=== PATIENT | female | born 1990 | race Caucasian/White ===

== ENCOUNTER 2017-02-17 20:14 | Inpatient (IN) | payer MEDICAID ==
--- NOTE | ~2017-02-17 | HP ---
Unit #: [id number] #: [id number] Patient: HAYDE MOSCOSO [id number] [address] [address] [id number] I MR#: [id number] NAME: HAYDE MOSCOSO ROOM: 463 Age: Sex: F Admission Date: 02/18/2017 : 1990 Attending Physician: Vilma Terry M.D. Primary Care Physician: Primary Care Physician No HISTORY AND PHYSICAL ADDENDUM Strep screen and influenza swabs are negative. Dictated by Vilma Terry M.D. AML/ts TD: 02/18/2017 05:04 JOB #: [id number] HISTORY AND PHYSICAL Page 1 of 1 X Vilma Terry MD X HISTORY AND PHYSICAL
--- NOTE | ~2017-02-17 | DS ---
Unit #: [id number] #: [id number] Patient: HAYDE MOSCOSO [id number] [address] [address] [id number] I MR#: [id number] NAME: HAYDE MOSCOSO ROOM: 46 Age: 26 Sex: F Admission Date: 02/18/2017 : 1990 Discharge Date: 02/20/2017 Attending Physician: Fabian Booth M.D. Primary Care Physician: No Primary Care Physician DISCHARGE SUMMARY ADMISSION DIAGNOSES 1. Probable viral illness including likely viral bronchitis with mild neutropenia and thrombocytopenia. 2. Mild rhabdomyolysis secondary to myalgias and likely untreated hypothyroidism. 3. Polycystic ovarian syndrome. 4. Hypothyroidism, out of Synthroid. 5. Mildly elevated liver function tests. DISCHARGE DIAGNOSES 1. Viral bronchitis with mild neutropenia and thrombocytopenia, improved. 2. Systemic inflammatory response syndrome without obvious source of infection. 3. Fever, resolved. 4. Hypokalemia, resolved. 5. Hypomagnesemia, resolved. 6. Mild rhabdomyolysis, improving. 7. Polycystic ovarian syndrome, stable. 8. Acute anemia, hemoglobin and hematocrit stable. Needs followup with primary care physician. 9. Probable gastroesophageal reflux disease. 10. History of major depressive disorder with past hospitalization at [facility] without suicidal or homicidal ideation. 11. Morbid obesity with body mass index of 57.4. CONSULTANTS Dr. Vernon Joe, psychiatry. PROCEDURES None. DIAGNOSTIC STUDIES LABORATORY: WBC 3.6, hemoglobin 9.9, hematocrit 29.9, platelet count 129,000 and sodium 139, potassium 3.8, chloride 109, CO2 26, BUN 6, creatinine 1.0, glucose 93, AST 59, ALT 56. Blood cultures preliminary x2 no growth. Urine culture final no growth at 48 hours. Stool cultures for Shiga toxin 1 and 2 no Salmonella or Shigella isolated. Campylobacter antigen final, antigen absent or levels below limit of detection. Hemoglobin A1C 5.7. TSH 15.27. Free T4 0.85. Admission urine drug screen negative. Strep DNA throat culture result no group A strep detected IMAGING: On 02/17/17 two-view chest x-ray, impression normal chest. Unit #: [id number] #: [id number] Patient: BLANKA,BRIGHID ALLERGIES Sulfa. DISCHARGE MEDICATIONS 1. Acetaminophen 325 mg tab two p.o. q.4 h. p.r.n. pain over the counter. 2. Mag-Al Plus suspension 30 mL p.o. q.6 h. p.r.n. dyspepsia over the counter. 3. Celexa 20 mg p.o. q.h.s. 4. Desyrel 100 mg p.o. q.h.s. 5. Vistaril 25 mg p.o. t.i.d. 6. Zithromax 250 mg p.o. daily for two more days for a total of five days of antibiotic therapy. 7. Synthroid 0.025 mg p.o. daily on empty stomach in the early a.m. DISCHARGE INSTRUCTIONS 1. Disposition home. 2. Patient is to have a CBC as well as a CK total performed at the lab of her choice although the patient may come to the [facility] lab for this in one week. Results are to be faxed to the [facility] Medicine office at [phone]. 3. The patient is to contact her health insurance provider regarding PCP assignment. The patient confirms she does have health insurance but has not called or chosen a PCP because of the time she has been spending with her mother who is currently hospitalized at this facility as well. 4. Patient is to call and schedule a follow-up appointment with her primary care physician once established for a PROFESSOR OF RELIGIOUS STUDIES update examination and PCOS evaluation and management. 5. Constant carbohydrate diet. 6. Patient is to follow up with her primary care physician in six weeks for repeat thyroid profile and for medication management of L-thyroxin. 7. Patient is to [facility] up [facility] as advised by Dr. Vernon Joe at his visit with her this morning. HOSPITAL COURSE Patient is a 26-year-old, morbidly obese female who presented to [facility] emergency department on the date of admission with chief complaint of cough, nausea, vomiting and diarrhea. Patient was treated with IV bolus, Toradol, Tylenol and Zithromax. Patient was noted to have mild rhabdomyolysis as well as a depressed white blood cell count at 2.6. Chest x-ray was negative. Patient was noted to have a history of hypothyroidism and had not been taking her Synthroid for a period of time because she does not have a primary care physician. Patient was admitted to the hospital for further evaluation and management of her condition. Please refer to history and physical report for details. The patient was noted to continue with a mild nonproductive cough throughout the hospital course. She has had slow but consistent improvement in neutropenia as well as thrombocytopenia. She has had no bleeding. She has continued to receive oral Zithromax and is to continue for two additional days for a total of five days of antibiotic therapy. While the patient met SIRS criteria, she had no suspected source of infection. Patient was started however on a Z-Thiago by the emergency room physician. The patient's chest x-ray, urine cultures, preliminary blood cultures have all returned negative. The patient has denied any type of neck pain and has not exhibited any nuchal rigidity. Patient's appetite Unit #: [id number] #: [id number] Patient: HAYDE MOSCOSO has gradually improved. She has had no further nausea, vomiting or diarrhea and is tolerating food and fluids well at this time. The patient received repletion of potassium and magnesium for hypokalemia and hypomagnesemia both of which have resolved as well. Her CK total has gradually continued to decrease. She is to establish herself with a primary care physician. She confirms she does have health insurance plan and followup as dictated under discharge instructions above. Patient was noted to have some inconsistencies in her daily conversations with the internal medicine provider throughout the hospital course. Patient was also noted to have a flat affect and be apathetic in general. She was noted to be wandering the halls at night and very sleepy during the daytime. Review of [facility] records revealed Our documentation of a prior history of major depressive disorder, severe and recurrent, as well as agoraphobia. Patient was noted to be on no psychiatric medications again as the patient has not taken any of her medications because she does not have a primary care doctor. Dr. Joe was consulted for further psychiatric evaluation and management. Patient was started on Celexa, Vistaril and trazodone as dictated above. The patient has been given a prescription for all of these medications by Dr. Joe. kettle worker will confirm the patient can afford all of the medications prescribed both for the two-days of antibiotic levothyroxine and all of the psychiatric medications prior to discharge today. I discussed the patient with Dr. Booth and he has evaluated her at the bedside today. She has been cleared for discharge home with CBC and CK total in one week as dictated above to follow white blood cell count, red blood cell count, hemoglobin and hematocrit as well as CK. Dictated by... Doris Song A.P.R.N. for Fabian Booth M.D. ALPESH/gustavo TD: 02/22/2017 15:30 JOB #: [id number] DISCHARGE SUMMARY Page 1 of 1 X Doris Song APRN X DISCHARGE SUMMARY
--- NOTE | ~2017-02-17 | BMI ---
[facility] Nutrition Therapy DATE: 02/18/17 Patient: HAYDE MOSCOSO Physician: ARY Address: [address] [facility] Room/Bed: [address] [place] [address], Zip: [place] [address] Admit Date: 02/18/17 Date of : [birth year] Height: 5 9 Weight: 389 176.9 HIGH BMI NOTE: DX: 26 Y.O. FEMALE ADMITTED FOR N/V COUGH RHABDO ANTHROPOMETRICS: 5'9", WT: 389# (177 KG), BMI: 57.4 DIET: FULL LIQUID INTERVENTION: 1. FULL LIQUID DIET RECOMMENDATIONS: 1. ONCE MEDICALLY FEASIBLE, ADVANCE DIET INDICATED TO HEALTHY HEART TO PROMOTE GRADUAL WEIGHT LOSS TOWARDS HEALTHY BMI (19.0-25.0) OR +/-10%IBW RD WILL F/U PER PROTOCOL Respectfully, JALEEL PATTEN MS, RD, LD Food and Nutritional Services [facility] cc: client file
--- NOTE | ~2017-02-17 | CR63 ---
[facility] A Service of [facility] RADIOLOGY TEXT RESULTS PATIENT: HAYDE MOSCOSO LOCATION: [place] [address]- : [birth year] UNIT #: [id number] AGE: [address]: Fabian Booth MD SEX: F ORDER DR: [id number] [facility] [address] [facility] [place], [place] [address] [id number] I MR#: [id number] Acc #: [id number] NAME: HAYDE MOSCOSO : 1990 SEX: F STUDY DATE/TIME: 02/17/2017 21:43 UNIT: [facility] [place] [facility] ROOM: [facility] STUDY DESCRIPTION: CR Chest 2 View Attending Physician: Vilma Terry M.D. Ordering Physician: Brandon Noguera Aprn Primary Care Physician: Primary Care Physician No MEDICAL IMAGING REPORT This report is preliminary unless electronic signature is present EXAM Chest PA and lateral 02/17/2017 HISTORY Cough, dizziness, chills, headache and diarrhea for 4 days with body aches. FINDINGS PA and lateral examination of the chest upright shows a good expansion of the parenchyma with a normal distribution of the pulmonary vascularity. There is no indication of congestion, effusion, infiltrate, tumor, or nodular density. The pleural reflections and diaphragmatic contours are normal. The cardiac silhouette and mediastinal anatomy is within normal limits. IMPRESSION Normal chest. Dictated by... Maicol Carreon M.D. THIS IS AN ELECTRONICALLY VERIFIED REPORT Maicol Carreon M.D. at 02/18/2017 10:42 AM JAUN/shruthi TD: 02/18/2017 07:59 JOB #: [id number] MEDICAL IMAGING REPORT Page 1 of 1 COPY
--- NOTE | ~2017-02-17 | HP ---
Unit #: [id number] #: [id number] Patient: HAYDE MOSCOSO [id number] [address] [address] [id number] I MR#: [id number] NAME: HAYDE MOSCOSO ROOM: 463 Age: 26 Sex: F Admission Date: 02/18/2017 : 1990 Attending Physician: Vilma Terry M.D. Primary Care Physician: No Primary Care Physician HISTORY AND PHYSICAL CHIEF COMPLAINT Cough. HISTORY This pleasant 26-year-old female, with polycystic ovarian syndrome, hypothyroidism, is admitted for cough, nausea, vomiting, diarrhea and mild rhabdomyolysis. The patient was in her usual state of health until four days ago when she developed rigors, diaphoresis, nonproductive cough, anorexia, diarrhea. Has been experiencing some multiple pains and myalgias with the above. Notes concentrated-appearing urine. She was sent to this emergency department late last evening where she was bolused with IV fluids, given Toradol, Tylenol, Zithromax. Labs are notable for mild rhabdomyolysis, and a white blood count of 2.6. Chest x-ray is negative. The patient does have a history of hypothyroidism, and has not taken her Synthroid for some time. PAST MEDICAL HISTORY 1. Polycystic ovarian syndrome. 2. Hypothyroidism. 3. Cholecystectomy. ALLERGIES Sulfa. HOME MEDICATIONS The patient is taking [id number] cold and flu medicine. FAMILY HISTORY Hypertension, diabetes, CAD, malignancy. SOCIAL HISTORY The patient is living alone. She is a lifelong nonsmoker, does not drink alcohol or use illicit drugs. Denies any possibility of . REVIEW OF SYSTEMS Notable for rigors, myalgias, diarrhea, diaphoresis, nonproductive cough, poor p.o. intake, migraines, cholecystectomy, polycystic ovarian syndrome, hypothyroidism. All other systems were reviewed and are otherwise negative. PHYSICAL EXAMINATION GENERAL APPEARANCE: Pleasant, morbidly obese 26-year-old female, Unit #: [id number] #: [id number] Patient: HAYDE MOSCOSO currently in no acute distress. VITAL SIGNS: Temperature 100.4, pulse 103, respirations 16, blood pressure 145/74. O2 saturation is 98% on room air. HEENT: Eyes PERRLA. Extraocular muscles are intact. Pharynx is benign. NECK: Supple without adenopathy or thyromegaly. CHEST: Clear. CARDIAC: Normal S1 and S2 without S3, S4 or murmur. ABDOMEN: Bowel sounds are present. No hepatosplenomegaly, tenderness or masses. EXTREMITIES: Without edema. Pedal pulses are present. NEUROLOGIC: The patient is awake, alert, oriented. Cranial nerves are intact. Equal strength throughout. DIAGNOSTIC STUDIES LABORATORY: Hematocrit is 35.6, white blood count 2.6, platelet count is 110 with a normal differential. SMA-12 - glucose 123, AST 144, ALT 83, CPK was 5121. Urinalysis - 1+ protein, 2+ bacteria but without significant white cells. IMAGING: Chest x-ray - no acute disease. ASSESSMENT 1. Probably viral illness including likely viral bronchitis with mild neutropenia and thrombocytopenia. 2. Mild rhabdomyolysis secondary to myalgias and likely untreated hypothyroidism. 3. Polycystic ovarian syndrome. 4. Hypothyroidism, out of Synthroid. The patient was previously taking 0.075 mg daily. 5. Mildly elevated LFTs. PLANS 1. IV fluids and supportive treatment. 2. Zithromax will be continued for now. 3. Recheck labs in the morning. 4. If TSH is elevated in the morning, would restart Synthroid at 0.75 mg daily. 5. DVT prophylaxis. 6. Stool cultures. Dictated by Vilma Terry M.D. AML/df TD: 02/18/2017 05:01 JOB #: [id number] Unit #: [id number] #: [id number] Patient: HAYDE MOSCOSO HISTORY AND PHYSICAL Page 1 of 1 X Vilma Terry MD HISTORY AND PHYSICAL
--- NOTE | ~2017-02-17 | A ---
[facility] Nutrition Therapy DATE: 02/18/17 Patient: HAYDE MOSCOSO Physician: ARY Address: [address] [facility] Room/Bed: [address] [place] [address], Zip: [place] [address] Admit Date: 02/18/17 Date of : [birth year] Height: 5 9 Weight: 389 176.9 NUTRITIONAL ASSESSMENT: REASON: CONSULT RE: BMI OF 57 PT IS 26 Y.O. FEMALE ADMITTED FOR N/V RD PROVIDED WRITTEN AND VERBAL WEIGHT CONTROL + CC+HH DIET EDUCATION. RD PROVIDED LIST OF FOODS TO AVOID/LIMIT AND FOODS TO EAT MORE OFTEN. PT SPECIFICALLY ASKED ABOUT MEAL PREPPING. RD AND GLASS SANDER PROVIDED EXAMPLES OF FOODS TO MEAL PREP WEEKLY. PT REPORTS DRINKING WATER AND FLAVORED WATER. PT DEMONSTRATED UNDERSTANDING OF THE TOPIC. RD TO REMAIN AVAILABLE UPON REQUEST. RECOMMENDATIONS: 1. ONCE MEDICALLY FEASIBLE, ADVANCE DIET TO CC+HH TO PROMOTE GRADUAL WEIGHT LOSS TOWARDS HEALTHY BMI 2. RE-CONSULT RD IF FURTHER DIET EDUCATION REQUESTED RD WILL F/U PER PROTOCOL Respectfully, JALEEL PATTEN MS, RD, LD Food and Nutritional Services [facility] cc: client file
--- NOTE | ~2017-02-17 | CO ---
Unit #: [id number] #: [id number] Patient: EVELIN MOSCOSO [id number] [address] [place], [place] [address] [id number] I MR#: [id number] NAME: EVELIN MOSCOSO ROOM: 463 Age: 26 Sex: F Admission Date: 02/18/2017 : 1990 Attending Physician: Fabian Booth M.D. Primary Care Physician: No Primary Care Physician Consultation Date: 02/20/2017 CONSULTATION REPORT REASON FOR CONSULTATION Depression. HISTORY OF PRESENT ILLNESS Ms. Evelin Moscoso is a 26-year-old, morbidly obese, white female seen in room 463, bed 1 on 02/20/17. The patient was admitted with a diagnosis of nausea, vomiting, cough, rhabdomyolysis. Patient's urine drug screen negative. Patient reports suffering from depression for a long time and admitted at [facility] once, treated in 2010. At that time diagnosed with major depressive disorder, panic disorder with agoraphobia. Patient reports trying different medications, but nothing has worked. Patient having symptoms of feeling of hopelessness, worthlessness but denied any suicidal or homicidal ideation. Denied any psychotic symptoms. Patient's vital signs - 99.0; 94; 16; 146/64; oxygen saturation 96%. Patient denied any use of any drugs or alcohol. PAST PSYCHIATRIC HISTORY Remarkable for history of previous treatment at [facility]. No history of any suicide attempt. Currently on no medications. MEDICAL HISTORY Patient was admitted with a cough, diagnosed with polycystic ovarian syndrome, hypothyroidism. ALLERGIES Sulfa. HOME MEDICATIONS Over the counter. FAMILY HISTORY/SOCIAL HISTORY Patient reports poor support system. Lives by herself. Denied any use of any drugs or alcohol. No history of any abuse. REVIEW OF SYSTEMS A complete review of systems is unremarkable except as mentioned above. MENTAL STATUS EXAMINATION Vital signs - The patient's height is 5'9", weight 389 pounds. General appearance - Patient is morbidly obese, dressed casually, lying comfortably in bed. Attention span, concentration - Poor. Speech - Low in volume and rate. Oriented to time, place and person. Mood and affect - Sad, depressed. Thought process - Coherent. Thought content - The patient denied any thoughts of harming self or others but feeling of hopelessness, Unit #: [id number] #: [id number] Patient: EVELIN MOSCOSO worthbrain. Denied any hallucinations. Recent and remote memory - Fair. Language - Intact. Fund of knowledge - Fair. Insight and judgment - Fair to slightly impaired. DIAGNOSIS 1. PSYCHIATRIC: Major depressive disorder, recurrent, severe, F33.2; anxiety disorder, NOS, F40.01; agoraphobia with panic disorder. 2. SECONDARY DIAGNOSIS: Deferred 3. MEDICAL DIAGNOSIS: Please refer to H and P. 4. STRESSOR: Psychosocial stressors. ASSESSMENT AND PLAN 1. Supportive psychotherapy and psychoeducation provided to the patient. 2. Educated about benefits and side effects of medication and course and prognosis of illness. 3. Advised to start the patient on Celexa 20 mg daily for depression, Vistaril 25 mg t.i.d. for anxiety and Desyrel 100 mg at bedtime for sleep. Patient advised to follow up in outpatient program at [facility] and given Crisis Line number . Please feel free to call with any questions, telephone number . Dictated by... Beatrice Gonzales/awilda TD: 02/21/2017 09:12 JOB #: [id number] CONSULTATION REPORT Page 1 of 1 X Vernon Joe MD X CONSULTATION REPORT
[2017-02-17 21:10] LABS: INFLUENZA A NEG (NEG); INFLUENZA B NEG (NEG)
[2017-02-17 21:25] LABS: BASOPHIL% 1.2 % (0-2.5); EOSINOPHIL% 1.1 % (0.0-7.0); HEMATOCRIT 35.6 % (35.0-45.0); HEMOGLOBIN 12.2 gm/dL (12.0-16.0); LYMPHOCYTE# 0.9 X10e3 (1.0-3.5); LYMPHOCYTE% 35.4 % (17.0-45.0); MEAN CELL VOLUME 87.4 FL (83-96); MEAN CORPUSCULAR HEMOGLOBIN 29.9 PG (28-34); MEAN CORPUSCULAR HGB CONC 34.2 g/dL (30-36); MEAN PLATELET VOLUME 9.6 FL (6.5-11.5); MONOCYTE# 0.3 X10e3 (0-1.0); MONOCYTE% 10.5 % (3.0-12.0); NEUTROPHIL# 1.3 X10e3 (1.5-7.1); NEUTROPHIL% 51.8 % (40-75); PLATELET COUNT 110 X10e3 (140-420); RED BLOOD COUNT 4.08 X10e (3.90-5.30); RED CELL DISTRIBUTION WIDTH 14.1 % (11.0-15.5); WHITE BLOOD COUNT 2.6 X10e3 (4.0-10.5)
[2017-02-17 21:26] LABS: DIFF IND YES
[2017-02-17 21:46] LABS: NUCLEATED RED BLOOD CELL 1 /100 (0); PLATELET ESTIMATE DECREASED (NORMAL)
[2017-02-17 21:47] LABS: RBC NORMAL YES
[2017-02-17 22:14] LABS: ALBUMIN SERUM 3.8 g/dL (3.5-5.0); BILIRUBIN, DIRECT 0.2 mg/dL (0.0-0.2); BILIRUBIN,TOTAL 1.2 mg/dL (0.2-2.0); BUN/CREATININE RATIO 9.09; CALCIUM SERUM 8.7 mg/dL (8.4-10.2); CREATININE SERUM 1.1 mg/dL (0.6-1.4); GLOM FILT RATE Estimated 69.3 mL/min (>60); POTASSIUM 3.5 mmol/L (3.5-5.1); PROTEIN TOTAL SERUM 7.4 g/dL (6.0-8.3)
[2017-02-17 22:39] LABS: URINE SOURCE CLEAN CATCH
[2017-02-17 22:42] LABS: URINE APPEARANCE CLOUDY; URINE BILIRUBIN NEG (NEG); URINE BLOOD NEG (NEG); URINE COLOR DK YELLOW; URINE GLUCOSE NEG (NEG); URINE KETONE TRACE (NEG); URINE LEUKOCYTE ESTERASE NEG (NEG); URINE NITRATE NEG (NEG); URINE PH 5.5 (5-8); URINE PROTEIN 1+ (NEG); URINE SPECIFIC GRAVITY 1.022 (1.003-1.035); URINE UROBILINOGEN 0.2 MG/DL (NEG)
[2017-02-17 22:44] LABS: CULTURE INDICATED? YES; URINE BACTERIA AUWI 2+ (NEGATIVE); URINE SQUAMOUS EPITHELIAL CELL MOD /[HPF]
[2017-02-18 00:52] LABS: AMPHETAMINE NEG (NEG); BARBITURATES NEG (NEG); BENZODIAZEPINES NEG (NEG); COCAINE NEG (NEG); MARIJUANA NEG (NEG); OPIATES NEG (NEG); TRICYCLIC ANTIDEPRESSANTS NEG (NEG); U METHADONE NEG (NEG)
[2017-02-18 05:52] LABS: BASOPHIL% 0.7 % (0-2.5); HEMOGLOBIN 10.8 gm/dL (12.0-16.0); LYMPHOCYTE# 0.8 X10e3 (1.0-3.5); LYMPHOCYTE% 38.7 % (17.0-45.0); MEAN CELL VOLUME 88.7 FL (83-96); MEAN CORPUSCULAR HEMOGLOBIN 29.9 PG (28-34); MEAN CORPUSCULAR HGB CONC 33.7 g/dL (30-36); MEAN PLATELET VOLUME 9.8 FL (6.5-11.5); MONOCYTE# 0.2 X10e3 (0-1.0); MONOCYTE% 10.3 % (3.0-12.0); NEUTROPHIL% 48.3 % (40-75); RED CELL DISTRIBUTION WIDTH 13.9 % (11.0-15.5)
[2017-02-18 06:14] LABS: DIFF IND YES; PLATELET COUNT 82 X10e3 (140-420)
[2017-02-18 06:17] LABS: PLATELET ESTIMATE DECREASED (NORMAL); RBC NORMAL YES
[2017-02-18 07:12] LABS: ALBUMIN SERUM 3.1 g/dL (3.5-5.0); BILIRUBIN,TOTAL 0.6 mg/dL (0.2-2.0); BUN/CREATININE RATIO 10.83; CALCIUM SERUM 8.1 mg/dL (8.4-10.2); CREATININE SERUM 1.2 mg/dL (0.6-1.4); GLOM FILT RATE Estimated 62.3 mL/min (>60); POTASSIUM 3.2 mmol/L (3.5-5.1); PROTEIN TOTAL SERUM 5.9 g/dL (6.0-8.3)
[2017-02-19 02:37] LABS: HEMATOCRIT 31.7 % (35.0-45.0); HEMOGLOBIN 10.7 gm/dL (12.0-16.0); MEAN CELL VOLUME 89.7 FL (83-96); MEAN CORPUSCULAR HEMOGLOBIN 30.3 PG (28-34); MEAN CORPUSCULAR HGB CONC 33.7 g/dL (30-36); MEAN PLATELET VOLUME 10.1 FL (6.5-11.5); RED BLOOD COUNT 3.53 X10e (3.90-5.30); RED CELL DISTRIBUTION WIDTH 14.5 % (11.0-15.5); WHITE BLOOD COUNT 3.5 X10e3 (4.0-10.5)
[2017-02-19 03:15] LABS: ALBUMIN SERUM 3.2 g/dL (3.5-5.0); BILIRUBIN,TOTAL 1.1 mg/dL (0.2-2.0); CALCIUM SERUM 7.7 mg/dL (8.4-10.2); GLOM FILT RATE Estimated 77.7 mL/min (>60); MAGNESIUM 1.5 mg/dL (1.6-3.0); POTASSIUM 3.4 mmol/L (3.5-5.1); PROTEIN TOTAL SERUM 6.2 g/dL (6.0-8.3)
[2017-02-20 03:48] LABS: HEMATOCRIT 29.9 % (35.0-45.0); HEMOGLOBIN 9.9 gm/dL (12.0-16.0); MEAN CORPUSCULAR HEMOGLOBIN 29.8 PG (28-34); MEAN CORPUSCULAR HGB CONC 33.1 g/dL (30-36); MEAN PLATELET VOLUME 10.4 FL (6.5-11.5); RED BLOOD COUNT 3.32 X10e (3.90-5.30); RED CELL DISTRIBUTION WIDTH 14.4 % (11.0-15.5); WHITE BLOOD COUNT 3.6 X10e3 (4.0-10.5)
[2017-02-20 04:10] LABS: ALBUMIN SERUM 2.9 g/dL (3.5-5.0); BILIRUBIN,TOTAL 1.1 mg/dL (0.2-2.0); CALCIUM SERUM 7.9 mg/dL (8.4-10.2); GLOM FILT RATE Estimated 77.7 mL/min (>60); POTASSIUM 3.8 mmol/L (3.5-5.1); PROTEIN TOTAL SERUM 5.5 g/dL (6.0-8.3)
[2017-02-20] MEDS ORDERED: ACETAMINOPHEN650 M4 PO (17:52)
[2017-02-20] MEDS ORDERED: ANTACID ANTI-G355 M1 PO (17:54)
[2017-02-20] MEDS ORDERED: CELEXA20 M1 PO (17:55)
[2017-02-20] MEDS ORDERED: HYDROXYZINE PAM25 M1 PO (17:56)
[2017-02-20] MEDS ORDERED: DESYREL100 MG PO (17:56)
[2017-02-20] MEDS ORDERED: ZITHROMAX PO (17:57)
[2017-02-20] MEDS ORDERED: SYNTHROID125 PO (17:58)
== END 2017-02-20 18:30 | disposition home or self-care (01) | DRG 202 ==
LOC: CED 20:14 → CFTX 20:14 → C4C 02-18 01:15 → CFTX 02-18 01:15 → CEDOF 02-18 01:15 → C4C 02-18 01:18 → CEDOF 02-18 01:18 → CFTX 02-18 01:18 → C4C 02-18 02:38 → CEDOF 02-18 02:38 → C4C 02-18 08:04
PROVIDERS: Internal Medicine; Nurse Practitioner; Nurse Practitioner Family; Physician Assistant
DX: J20.8 Acute bronchitis due to other specified organisms (principal); R65.10 Systemic inflammatory response syndrome (SIRS) of non-infectious origin without acute organ dysfunction; M62.82 Rhabdomyolysis; D70.9 Neutropenia, unspecified; F33.2 Major depressive disorder, recurrent severe without psychotic features; D69.59 Other secondary thrombocytopenia; Z68.43 Body mass index [BMI] 50.0-59.9, adult; E28.2 Polycystic ovarian syndrome; E03.9 Hypothyroidism, unspecified; E87.6 Hypokalemia; E83.42 Hypomagnesemia; D64.9 Anemia, unspecified; E66.01 Morbid (severe) obesity due to excess calories; F40.00 Agoraphobia, unspecified; Z82.49 Family history of ischemic heart disease and other diseases of the circulatory system; Z83.3 Family history of diabetes mellitus; K21.9 Gastro-esophageal reflux disease without esophagitis
CPT/HCPCS: 71020; 80048; 80053; 80076; 80307; 81003; 82550; 83036; 83735; 84439; 84443; 84703; 85025; 85027; 87040; 87045; 87086; 87427; 87651; 87804; 87899; 96361; 96374; 99285; J1650; J1885; J3475